=== PATIENT | male | born 2000 | race Caucasian/White ===

== ENCOUNTER 2020-11-19 22:05 | Observation (INO) | payer BC ==
[2020-11-19 22:49] LABS: Bilirubin Neg (Negative); Blood, Urine Negative (Negative); Clarity Clear (Clear); Glucose, Urine (Dipstick) Normal (Negative); Ketone, Urine 5 mg/dL (Negative); Leukocyte Negative (Negative); Nitrite Negative (Negative); Protein, Urine (Dipstick) 15 mg/dl (Neg-Trace); Specific Gravity, Urine 1.025 (1.002-1.036)
[2020-11-19 22:50] LABS: #Eosinphils 0.1 10x3/uL (0.0-0.5); #Monocytes 0.5 10x3/uL (0.0-1.1); #Neutrophils 5.5 10x3/uL (1.5-8.4); %Basophils 0.4 % (0.0-2.0); %Eosinophils 1.7 % (0.0-6.0); %Lymphocytes 13.3 % (18.0-47.0); %Monocytes 7.6 % (0.0-10.0); %Neutrophils 76.7 % (40.0-75.0); Mean Corpuscular HGB CONC 33.8 g/dL (32.0-36.0); Mean Corpuscular Hemoglobin 29.6 pg (27.0-33.0); Mean Corpuscular Volume 87.8 fl (81.2-95.1); Mean Platelet Volume 10.8 fl (7.4-10.4); Platelet Count 209 10x3/uL (150-450); RBC Distribution Width 12.3 % (11.5-14.5); White Blood Cell (WBC) Count 7.2 10x3/uL (3.5-10.5)
[2020-11-19 23:10] LABS: ALT (SGPT) 14 U/L (8-55); AST (SGOT) 14 U/L (5-34); Albumin 4.4 g/dL (3.5-5.0); Alkaline Phosphatase 69 U/L (50-130); Anion Gap 13 mmol/L (10-20); BUN (Urea Nitrogen) 20 mg/dL (8.9-20.6); Calc. Creatinine Clearance 0 mL/min (70-130); Calcium 9.7 mg/dL (7.8-10.44); Carbon Dioxide 28 mmol/L (22-29); Chloride 100 mmol/L (98-107); Glucose 114 mg/dL (70-105); Potassium 3.9 mmol/L (3.5-5.1); Protein, Total 7.4 g/dL (6.0-8.3); Sodium 137 mmol/L (136-145)
[2020-11-20] MEDS ORDERED: Piperacillin/Tazobactam 4.5 GM VIAL ONE (00:06)
[2020-11-20] MEDS ORDERED: Morphine 4 MG/ML VIAL SLOW IVP PRN ×2 (01:08→08:32)
[2020-11-20 01:09] LABS: SARS-CoV-2 NAA Rapid Test Not Detected (NotDetected)
[2020-11-20] MEDS ORDERED: Ondansetron PF 4 MG/2 ML Vial IVP PRN ×2 (01:15→08:19)
[2020-11-20] MEDS ORDERED: Ondansetron ODT 4 MG TAB SL PRN (01:15)
[2020-11-20] MEDS: Sodium Chloride 0.9% 1,000 ML IV SCH ×2 (02:05→10:17)
[2020-11-20] MEDS ORDERED: PROPOFOL 20 ML ONE (06:54)
[2020-11-20] MEDS ORDERED: Glycopyrrolate 0.2 MG/ML 5 ML SYRINGE ONE (06:55)
[2020-11-20] MEDS ORDERED: Ketorolac Tromethamine 15 MG/ML VIAL ONE ×2 (06:55→07:44)
[2020-11-20] MEDS ORDERED: Dexamethasone 20 MG/5 ML VIAL ONE (06:55)
[2020-11-20] MEDS ORDERED: Ondansetron PF 4 MG/2 ML Vial ONE (06:55)
[2020-11-20] MEDS ORDERED: Succinylcholine 200 MG/10 ml SYRINGE FS ONE (06:55)
[2020-11-20] MEDS ORDERED: Midazolam HCl 2 mg/2 ml Vial ONE (06:55)
[2020-11-20] MEDS ORDERED: Fentanyl 100 MCG/2 ML VIAL ONE (06:55)
[2020-11-20] MEDS ORDERED: Rocuronium Bromide 10 MG/ML (10ML VIAL) ONE (06:55)
[2020-11-20] MEDS ORDERED: EPINEPHrine 1 MG/ML AMP ONE (07:09)
[2020-11-20] MEDS ORDERED: Bupivacaine PF 0.5% 30 ML VIAL ONE (07:09)
[2020-11-20 07:33] VITALS: BMI 19.9
[2020-11-20] MEDS ORDERED: Piperacillin/Tazobactam 4.5 GM in Sodium Chloride 0.9% 100 ML IVPB SCH (08:00)
[2020-11-20] MEDS ORDERED: HYDROcodone/Acetaminophen 10/325 mg Tablet PO PRN (08:19)
[2020-11-20] MEDS ORDERED: Dextrose 5% in Water 1,000 ML IV PRN (08:19)
[2020-11-20] MEDS ORDERED: Acetaminophen 325 MG TAB PO PRN (08:19)
[2020-11-20] MEDS ORDERED: Dextrose 50% Abboject 50 ML SYRINGE SLOW IVP PRN (08:19)
[2020-11-20 11:49] VITALS: BP 102/57; TEMP 98
[2020-11-20] MEDS ORDERED: Ketorolac Tromethamine 30 MG/ML VIAL IVP SCH (14:00)
== END 2020-11-20 14:10 | disposition home or self-care (01) ==
LOC: CSHERS 22:05 → CSHTELE 11-20 01:41
PROVIDERS: ADMIT Surgery; ATTEND Surgery
PROC: 0DTJ4ZZ Resection of Appendix, Percutaneous Endoscopic Approach (ICD-10-PCS; principal; 2020-11-20)
DX: K35.80 Unspecified acute appendicitis (principal)
CPT/HCPCS: 74177; 80053; 81003; 85025; 88304; 96365; G0378; J0171; J1100; J1885; J2250; J2405; J2543; J2704; J3010; J3490; J7050; S0020; U0002